=== PATIENT | female | born 1955 | race Caucasian/White ===

== ENCOUNTER → 2021-04-14 | Day surgery (SDC) | payer MEDICARE, OTHER ==
[~2021-04-14] MED LIST: Lactated Ringers 1,000 ML IV SCH; Lidocaine 1%/Sod Bicarbonate in NS 8.4% 1 ML Syringe IDERM PRN; Midazolam 1 MG/ML 2 ML SDV ONE; Propofol 200 MG/20 ML SDV ONE; Sodium Chloride 0.9% 10 ML Syringe FLUSH PRN
--- NOTE | 2021-04-14 07:31 | PCM.PREANE ---
Preanesthetic Assessment - Anesthesia/Transfusion/Family Hx Anesthesia History: Prior Anesthesia Without Reaction Family History of Anesthesia Reaction: No Transfusion History: No Prior Transfusion(s) - Review of Systems General: No Symptoms Pulmonary: No Symptoms Cardiovascular: Other (CAD with EF 30-40%, denies any chest pain, off plavix) Gastrointestinal: Other (barretts esophagus, silent heartburn. 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 - Allergies Allergies/Adverse Reactions: Allergies Allergy/AdvReac Type Severity Reaction Status Date / Time codeine Allergy Cannot Verified 04/11/21 13:02 Remember - Blood Blood Available: No Product(s) Available: None - Anesthesia Plan Beta Fredi: Metoprolol Med Last Dose Date: 04/14/21 Med Last Dose Time: 05:45 - Acknowledgements Anesthesia Type Planned: MAC Pt an Appropriate Candidate for the Planned Anesthesia: Yes Alternatives and Risks of Anesthesia Discussed w Pt/Guardian: Yes Pt/Guardian Understands and Agrees with Anesthesia Plan: Yes PreAnesthesia Questionnaire HEENT History: Reports: Impaired Vision, Other (See Below) Other HEENT History: wears glasses Cardiovascular History: Reports: Cardiomyopathy, Hypertension, Stents, Other (See Below) Other Cardiovascular History: mitral valve regurgitation Respiratory History: Reports: None Gastrointestinal History: Reports: Helicobacter Pylori, Other (See Below) Other Gastrointestinal History: barretts, esophagitis, duodenitis Genitourinary History: Reports: None PLUMBER MAINTENANCE History: Reports: None Musculoskeletal History: Reports: None Neurological History: Reports: None Psychiatric History: Reports: Anxiety Endocrine/Metabolic History: Reports: Diabetes, Type II Hematologic History: Reports: Anemia Immunologic History: Reports: None Oncologic (Cancer) History: Reports: None Dermatologic History: Reports: Other (See Below) Other Dermatologic History: incision and drainage of labial abcess - Infectious Disease History Infectious Disease History: Reports: None - Past Surgical History Head Surgeries/Procedures: Reports: None HEENT Surgical History: Reports: Oral Surgery Cardiovascular Surgical History: Reports: None Respiratory Surgical History: Reports: None GI Surgical History: Reports: Colonoscopy, EGD Female Surgical History: Reports: LEEP Male Surgical History: Reports: None Endocrine Surgical History: Reports: None Neurological Surgical History: Reports: None Musculoskeletal Surgical History: Reports: None Oncologic Surgical History: Reports: None Dermatological Surgical History: Reports: None - SUBSTANCE USE Tobacco Use Status *Q: Never Tobacco User Recreational Drug Use History: No - HOME MEDS Home Medications: Home Meds Aspirin 81 mg PO DAILY 04/11/21 [History] Calcium Carbonate [Tums] 1,000 mg PO Q2H PRN 04/11/21 [History] Clopidogrel Bisulfate [Plavix] 75 mg PO DAILY 04/11/21 [History] Furosemide [Lasix] 20 mg PO DAILY 04/11/21 [History] Metoprolol Succinate 25 mg PO DAILY 04/11/21 [History] Rosuvastatin Calcium 20 mg PO DAILY 04/11/21 [History] lisinopriL [Lisinopril] 2.5 mg PO BID 04/11/21 [History] metFORMIN [Glucophage XR] 1,000 mg PO QPM 04/11/21 [History] metFORMIN [Glucophage XR] 500 mg PO QAM 04/11/21 [History] - CURRENT (IN HOUSE) MEDS Current Meds: Current Medications Lactated Ringer's (Ringers, Lactated) 1,000 mls @ 125 mls/hr IV ASDIRECTED MEAGAN Stop: 04/14/21 23:00 Lidocaine/Sodium Bicarbonate (Lidocaine 1%/Sod Bicarbonate In Ns 8.4% 1 Ml Syringe) 0.25 ml IDERM ONETIME PRN PRN Reason: Prior to IV Start Stop: 04/14/21 18:00 Sodium Chloride (Sodium Chloride 0.9% 10 Ml Syringe) 10 ml FLUSH ASDIRECTED PRN PRN Reason: Keep Vein Open Stop: 04/14/21 18:00 Discontinued Medications Midazolam HCl (Midazolam 1 Mg/Ml 2 Ml Sdv) Confirm Administered Dose 2 mg .ROUTE .STK-MED ONE Stop: 04/14/21 07:18 Propofol (Propofol 200 Mg/20 Ml Sdv) Confirm Administered Dose 400 mg .ROUTE .STK-MED ONE Stop: 04/14/21 07:19
--- NOTE | 2021-04-14 08:21 | PCM48HPAN ---
Post Anesthesia Note - EVALUATION WITHIN 48HRS OF ANESTHETIC Vital Signs in Normal Range: Yes Patient Participated in Evaluation: Yes Respiratory Function Stable: Yes Airway Patent: Yes Cardiovascular Function Stable: Yes Hydration Status Stable: Yes Pain Control Satisfactory: Yes Nausea and Vomiting Control Satisfactory: Yes Mental Status Recovered: Yes Vital Signs: Last Vital Signs Temp 36.2 C 04/14/21 07:25 Pulse 58 L 04/14/21 07:25 Resp 20 04/14/21 07:25 BP 103/64 04/14/21 07:25 Pulse Ox 95 04/14/21 07:25
--- NOTE | 2021-04-14 08:57 | PROC ---
DATE OF OPERATION: 04/14/2021 SURGEON: Solomon Tran MD PREOPERATIVE DIAGNOSIS: History of Boles's esophagus. POSTOPERATIVE DIAGNOSIS: History of Boles's esophagus. PROCEDURE: Esophagogastroduodenoscopy with Boles's biopsies. ESTIMATED BLOOD LOSS: Minimal. FINDINGS: Boles's esophagus in the distal esophagus at 34 to 36 cm, gastritis, and small hiatal hernia. ANESTHESIA: Monitored anesthesia care. INDICATION AND CONSENT: Ms. Villeda is a 66-year-old female who had established Boles's esophagus by biopsies about several years ago. The patient has been on PPI, but recently stopped due to her cardiac disease, so the patient was asked to follow up in 3 years for esophagogastroduodenoscopy with biopsies, for which she came to see me. I saw the patient and recommended to proceed with the procedure. We discussed risks, benefits, and alternatives, and informed consent was obtained. The patient is on dual anti-platelet therapy. Therefore, we had the patient stop Plavix for 7 days, but continued aspirin throughout the period and throughout the procedure. DETAILS OF PROCEDURE: The patient was taken to the procedure room, placed in left lateral decubitus position. Monitored anesthesia care was induced. We began the scope with esophagogastroduodenoscopy, placed the scope in the mouth, and taken all the way to the second portion of duodenum. The duodenum was normal. First portion was normal. Antrum had localized gastritis in the lesser curvature. This area was biopsied with cold forceps. There were no clear ulcers. The gastric body was normal. On retroflexion, there was small hiatal hernia, but no other abnormalities. GE junction appeared to have Boles esophagus as well as distal esophagus of esophagus. The GE junction was at 36 cm. The Boles esophagus appeared to be at 34 to 36 cm. Boles's biopsies with cold forceps were taken 4 quadrants 1 cm apart in the GE junction and distal esophagus. EBL was minimal. When this was done, air was suctioned out from the stomach and procedure was concluded. The patient tolerated the procedure well. She will be allowed to return home and follow up in 2 weeks for discussion. MMODAL /[id number] [facility] SHOREJohn
== END | disposition home or self-care (01) ==
LOC: JD.SDS 07:08
PROVIDERS: ATTEND Surgery
DX: K22.70 Barrett's esophagus without dysplasia (principal); K31.89 Other diseases of stomach and duodenum; K20.90 Esophagitis, unspecified without bleeding; K22.10 Ulcer of esophagus without bleeding; K44.9 Diaphragmatic hernia without obstruction or gangrene; K29.70 Gastritis, unspecified, without bleeding; I10 Essential (primary) hypertension; E11.9 Type 2 diabetes mellitus without complications; Z98.890 Other specified postprocedural states; Z79.899 Other long term (current) drug therapy; Z79.82 Long term (current) use of aspirin; Z88.5 Allergy status to narcotic agent
CPT/HCPCS: 43239; 88305; J2250; J2704; J7120; 00731

== ENCOUNTER 2025-03-20 07:52 | Day surgery (SDC) | payer MEDICARE, OTHER ==
[~2025-03-20 07:52] MED LIST changes: -Lactated Ringers 1,000 ML IV SCH; -Lidocaine 1%/Sod Bicarbonate in NS 8.4% 1 ML Syringe IDERM PRN; -Midazolam 1 MG/ML 2 ML SDV ONE; -Propofol 200 MG/20 ML SDV ONE; +Sodium Chloride 0.9% 10 ML Syringe FLUSH SCH
[2025-03-20] MEDS: Lactated Ringers 1,000 ML IV SCH (08:12)
[2025-03-20] MEDS ORDERED: Propofol 200 MG/20 ML SDV ONE ×2 (08:18)
== END 2025-03-20 10:00 | disposition home or self-care (01) ==
LOC: JD.SDS 07:52
PROVIDERS: ATTEND Surgery
DX: K31.89 Other diseases of stomach and duodenum (principal); K29.51 Unspecified chronic gastritis with bleeding; K20.0 Eosinophilic esophagitis; K22.70 Barrett's esophagus without dysplasia; K44.9 Diaphragmatic hernia without obstruction or gangrene; K57.30 Diverticulosis of large intestine without perforation or abscess without bleeding; K21.9 Gastro-esophageal reflux disease without esophagitis; D64.9 Anemia, unspecified; R19.5 Other fecal abnormalities; K22.89 Other specified disease of esophagus; I25.10 Atherosclerotic heart disease of native coronary artery without angina pectoris; E11.9 Type 2 diabetes mellitus without complications; Z80.0 Family history of malignant neoplasm of digestive organs; Z88.5 Allergy status to narcotic agent; Z88.8 Allergy status to other drugs, medicaments and biological substances; Z79.82 Long term (current) use of aspirin; Z79.899 Other long term (current) drug therapy
CPT/HCPCS: 43239; 45378; 88305; 88342; J2704; J7120; 00813; G0105